=== PATIENT | male | born 2000 | race African-American/Black ===

== ENCOUNTER 2024-12-07 15:56 | Emergency (ER) | payer OTHER ==
[~2024-12-07] VITALS: Ht 177.8 cm; Wt 80.0 kg
[2024-12-07 15:58] VITALS: O2SAT 99
[2024-12-07] MEDS: LEVETIRACETAM 500MG PREMIX 100 ML IV ONE (16:39)
[2024-12-07 16:46] LABS: BASOPHILS % 0.6 % (0.0-2.0); EOSINOPHILS % 0.9 % (0.0-5.0); HEMOGLOBIN. 13.8 g/dL (14.0-18.0); MEAN CORPUSCULAR HEMOGLOBIN 32.7 pg (28.0-32.0); MEAN CORPUSCULAR HGB CONC 34.5 g/dL (31.0-37.0); MEAN CORPUSCULAR VOLUME 94.8 fL (80.0-94.0); MEAN PLATELET VOLUME 7.8 fl (7.4-10.4); MONOCYTES % 8.2 % (2.0-8.0); NEUTROPHILS % 62.3 % (40.0-76.0); PLATELET 205 x1000/uL (130-400); RED BLOOD CELL COUNT 4.22 mill/uL (4.7-6.1); RED CELL DISTRIBUTION WIDTH 13.4 % (11.6-14.6); WHITE BLOOD COUNT 4.2 x1000/uL (4.5-11.0)
[2024-12-07 16:52] LABS: CHLORIDE 108 mEq/L (98-107); POTASSIUM 4.1 mEq/L (3.5-5.1); SODIUM 142 mEq/L (136-145)
[2024-12-07 16:53] LABS: CALCIUM 9.5 mg/dL (8.7-10.4); CARBON DIOXIDE 25 mEq/L (21-32)
[2024-12-07 16:58] LABS: CREATININE 1.1 mg/dL (0.6-1.3); ETHANOL BLOOD < 10 mg/dL (<10); GLUCOSE 130 mg/dL (70-105); UREA NITROGEN BLOOD 10 mg/dL (9-23)
[2024-12-07] MEDS: SODIUM CHLORIDE 0.9% 1,000 ML IV ONE (17:28)
[2024-12-07] MEDS: KETOROLAC 30MG/ML VIAL IV ONE (17:33)
[2024-12-07 19:55] VITALS: BP 113/72; PULSE 63; RESP 12; TEMP 36.8; O2SAT 98
== END 2024-12-07 20:07 | disposition home or self-care (01) ==
LOC: ER 15:56
DX: R56.9 Unspecified convulsions (principal)
CPT/HCPCS: 80048; 80320; 85025; 36415; 70450; 93005; 96361; 96365; 96375; 99285; J1953; J1885; J7030; G0480